=== PATIENT | female | born 1950 | race Two or more races ===

== ENCOUNTER 2023-12-11 16:46 | Outpatient (CLI) | payer OTHER ==
[2023-12-11 17:11] LABS: PH,URINE 5.5 (5.0-8.0); URINE APPEARANCE Cloudy; URINE BILIRRUBIN Negative (NEGATIVE); URINE BLOOD Large; URINE COLOR Yellow; URINE GLUCOSE Negative (NEGATIVE); URINE KETONE 15 (NEGATIVE); URINE LEUKOCYTE Large; URINE NITRATE Positive; URINE UROBILINOGEN 0.2 E.U./dl
[2023-12-11 17:15] LABS: URINE EPITHELIAL CELLS 3.7 uL (0.0-38.8); URINE RBC 310.8 uL (0.0-20.8); URINE WBC 2834.9 uL (0.0-23.2)
[2023-12-11 17:28] LABS: URINE BACTERIA > 9821.5 uL (0.0-1933); URINE CAST 0.15 uL (0.0-1.40); URINE MUCUS SCANT; URINE PROTEIN 100 (NEGATIVE)
== END 2023-12-11 17:16 | disposition home or self-care (01) ==
LOC: LAB 16:46
PROVIDERS: ATTEND Urology
DX: N30.00 Acute cystitis without hematuria (principal)